=== PATIENT | male | born 2000 | race Caucasian/White ===

== ENCOUNTER 2020-04-05 08:41 | Observation (INO) | payer BC ==
[~2020-04-05] VITALS: Ht 185.4 cm; Wt 88.6 kg
[2020-04-05 09:49] LABS: BASO % 0.2 % (0.0-2.0); EOS % 0.2 % (0-4.0); GRAN # 8.6 (1.4-6.5); GRAN % 81.1 % (42.2-75.2); HEMATOCRIT 43.2 % (42.0-52.0); HEMOGLOBIN 15.2 g/dl (13.5-18.0); LYMPH # 1.2 (1.2-3.4); LYMPH % 11.1 % (20.0-51.0); MEAN CELL VOLUME 88 fl (80.0-100.0); MEAN CORPUSCULAR HEMOGLOBIN 31 pg (27.0-31.0); MEAN CORPUSCULAR HGB CONC 35 g/dl (33.0-37.0); MEAN PLATELET VOLUME 9.5 fl (7.4-10.4); MONO # 0.7 (0.1-0.6); MONO % 6.9 % (1.7-9.3); PLATELET COUNT 228 K/mm3 (130-400); RED BLOOD COUNT 4.93 M/mm3 (4.20-5.60); REDCELL DISTRIBUTION WIDTH-CV 11.4 % (11.5-14.5)
[2020-04-05 09:58] LABS: ALBUMIN 4.9 gm/dL (3.5-5.0); BILIRUBIN,TOTAL 1.1 mg/dL (0.0-1.0); C-REACTIVE PROTEIN 0.7 mg/dL (0.0-0.9); CALCIUM 9.9 mg/dL (8.4-10.2); CREATININE, serum 1.27 (0.66-1.25); POTASSIUM 4.4 mmol/L (3.4-5.0); TOTAL PROTEIN 7.6 gm/dL (6.4-8.2)
[2020-04-05 10:35] LABS: COLLECTION METHOD CLEAN CATCH
[2020-04-05 10:50] LABS: MUCOUS Present /lpf; PH 7 (5-8); SQUAMOUS EPITHELIAL None Seen /hpf; URINE APPEARANCE Clear; URINE BACTERIA None Seen /hpf; URINE BILIRUBIN Negative (NEGATIVE); URINE BLOOD Negative (NEGATIVE); URINE COLOR Yellow; URINE GLUCOSE Negative (NEGATIVE); URINE KETONE Trace (NEGATIVE); URINE LEUKOCYTE ESTERASE Negative (NEGATIVE); URINE NITRATE Negative (NEGATIVE); URINE PROTEIN(semi-quant) Negative (NEGATIVE); URINE RBC 0-2 /hpf; URINE UROBILINOGEN Negative (NEGATIVE)
[2020-04-05] MEDS ORDERED: NORCO 325 MG-51 TAB PO (14:03)
[2020-04-05] MEDS ORDERED: MOTRIN 600600 MG/TAB PO (14:03)
[2020-04-05 14:43] VITALS: BP 123/65; PULSE 82
--- NOTE | 2020-04-05 14:46 | NUR ---
Patient to room from PACU. Alert and oriented x4. Rates pain 2/10 in abd. Would like some ice cream to eat at this time. Will provide ice cream and water. Mother in room with the patient. Lap sites x3 to abd with edges well approximated, no discharge/redness/swelling noted. Oriented to room.
[2020-04-05 14:57] VITALS: BP 127/69; PULSE 73; TEMP 99.2
[2020-04-05 15:13] VITALS: BP 130/60; PULSE 75
[2020-04-05 15:22] VITALS: BP 143/59; PULSE 86
[2020-04-05 15:58] VITALS: BP 142/59; PULSE 78
--- NOTE | 2020-04-05 16:01 | NUR ---
Rating pain in abd 5/10, requests pain medication. Administer Madeline and ibuprofen as prescribed. Patient has eaten, denies nausea. Is on cell phone in room. Mother at bedside. Denies needs at this time.
[2020-04-05 16:28] VITALS: BP 154/53; PULSE 70; TEMP 98.4
--- NOTE | 2020-04-05 16:38 | NUR ---
Patient feels like he is good to go home. Explain I will provide update to Dr. Ahmadi. Patient up to bathroom to void. Ambulating in halls with mom. Contacted Dr. Ahmadi and he will place discharge orders at this time.
--- NOTE | 2020-04-05 17:00 | NUR ---
Review all discharge instructions with the patient and his mother. Denies questions and verbalizes understanding. Signs all discharge paperwork. Discharge packet provided to the patient. Patient assisted out to mother's vehicle by this nurse with all belongings.
== END 2020-04-05 17:00 | disposition home or self-care (01) ==
LOC: COL.ER 08:41 → JCC 11:15
PROVIDERS: Family Medicine; ADMIT Surgery
DX: K35.80 Unspecified acute appendicitis (principal); Z87.891 Personal history of nicotine dependence
CPT/HCPCS: J1100; J1885; J2250; J2405; J2543; J2704; J3010; J7030; J7120; Q9967